=== PATIENT | male | born 1980 | race Caucasian/White ===

== ENCOUNTER 2017-12-15 15:04 | Emergency (ER) | payer OTHER ==
[2017-12-15] MEDS: ACETAMINOPHEN 325 MG TAB PO (17:39)
== END 2017-12-15 17:57 ==
LOC: E/R 15:04
DX: S01.411A Laceration without foreign body of right cheek and temporomandibular area, initial encounter (principal); K08.9 Disorder of teeth and supporting structures, unspecified; Y04.0XXA Assault by unarmed brawl or fight, initial encounter
CPT/HCPCS: 70450; 70486; 99285-25